=== PATIENT | female | born 1965 | race Hispanic/Latino ===

== ENCOUNTER 2022-04-30 13:18 | Inpatient (IN) | payer OTHER ==
[~2022-04-30] VITALS: Ht 147.3 cm; Wt 49.9 kg
[2022-04-30] MEDS ORDERED: HYDROCODONE/ACETAMINOPHEN 10/325 MG TAB PO ONE (14:00)
[2022-04-30] MEDS ORDERED: VANCOMYCIN 1G VIAL IVPB ONE (14:00)
[2022-04-30 14:04] LABS: BASOPHILS % (AUTO) 0.2 % (0.0-5.0); EOSINOPHILS % (AUTO) 0.5 % (0.0-8.0); HEMATOCRIT 28.4 % (36-48); LYMPHOCYTES % (AUTO) 11.2 % (21.0-51.0); MEAN CORPUSCULAR HEMOGLOBIN 28.6 pg (27.0-33.0); MEAN CORPUSCULAR HGB CONC 32.4 g/dL (32.0-36.0); MEAN CORPUSCULAR VOLUME 88.2 fL (79-99); MONOCYTES % (AUTO) 7.4 % (3.0-13.0); PLATELET COUNT (AUTO) 463 K/uL (130-400); RED BLOOD CELL COUNT(AUTO) 3.22 MIL/uL (4.00-5.50); RED CELL DISTRIBUTION WIDTH 12.9 % (11.0-15.5); WHITE BLOOD COUNT (AUTO) 17.6 K/uL (4.8-10.8)
[2022-04-30 14:12] LABS: CREATININE 2.5 mg/dL (0.5-1.5); POTASSIUM 4.2 mmol/L (3.5-5.1)
[2022-04-30] MEDS ORDERED: VANCOMYCIN 1G/250ML KIT 250 ML IV ONE (14:26)
[2022-04-30 14:27] LABS: ALBUMIN 2.9 g/dL (3.5-5.0); CRP QUANTITATIVE 160.8 mg/L (0.00-9.0); TOTAL PROTEIN, SERUM 8.6 g/dL (6.0-8.3)
[2022-04-30] MEDS: ZOSYN 3.375GM +NS 50ML IV SCH ×2 (14:38→20:42)
[2022-04-30] MEDS ORDERED: TETANUS/DIPHTHERIA TOXOID [ADULT] 0.5 ML VIAL IM ONE (15:00)
[2022-04-30] MEDS ORDERED: MORPHINE 4 MG SYG IV PRN (15:30)
[2022-04-30] MEDS ORDERED: CEFEPIME HCL 2 GM VIAL IVP SCH (15:30)
[2022-04-30] MEDS ORDERED: ACETAMINOPHEN 325 MG TAB PO PRN (15:30)
[2022-04-30] MEDS ORDERED: ACETAMINOPHEN WITH CODEINE 1 TAB TAB PO PRN ×2 (15:30)
[2022-04-30] MEDS ORDERED: VANCOMYCIN PROTOCOL PER PHARMACY IV PRN (15:30)
[2022-04-30] MEDS ORDERED: INSU100I3 SQ (15:46)
[2022-04-30] MEDS ORDERED: AMOX1TAB16 PO (15:46)
[2022-04-30] MEDS ORDERED: ATOR40TA69 PO (15:46)
[2022-04-30] MEDS ORDERED: LISI2.5T13 PO (15:46)
[2022-04-30] MEDS ORDERED: INSU100I21 SQ (15:46)
[2022-04-30] MEDS: 0.9% NACL 250ML 250 ML IV SCH (16:00)
[2022-04-30] MEDS: VANCOMYCIN 750MG VIAL IVPB SCH (16:00)
[2022-04-30] MEDS: 0.9%NACL 1000ML 1,000 ML IV SCH (16:15)
[2022-04-30] MEDS: CEFEPIME HCL 2 GM VIAL IVP SCH (20:42)
[2022-04-30 21:45] VITALS: BP 151/49
[2022-05-01] VITALS (17 sets, daily range): BP systolic 113–175; BP diastolic 61–86
[2022-05-01] MEDS ORDERED: BUPIVACAINE/PF 0.25% 50ML VIAL IJ ONE
[2022-05-01] MEDS ORDERED: LIDOCAINE HCL 1% 20 ML VIAL INJ ONE
[2022-05-01] MEDS: CEFEPIME HCL 2 GM VIAL IVP SCH ×3 (04:36→20:22)
[2022-05-01] MEDS: ZOSYN 3.375GM +NS 50ML IV SCH ×3 (06:13→22:00)
[2022-05-01] MEDS: ENOXAPARIN SODIUM 40 MG/0.4 ML SYRINGE SQ SCH (07:46)
[2022-05-01] MEDS: LISINOPRIL 2.5 MG TABLET PO SCH (08:13)
[2022-05-01 08:46] LABS: BASOPHILS % (AUTO) 0.4 % (0.0-5.0); EOSINOPHILS % (AUTO) 0.8 % (0.0-8.0); HEMATOCRIT 28.4 % (36-48); LYMPHOCYTES % (AUTO) 14.6 % (21.0-51.0); MEAN CORPUSCULAR HEMOGLOBIN 27.8 pg (27.0-33.0); MEAN CORPUSCULAR HGB CONC 31.7 g/dL (32.0-36.0); MEAN CORPUSCULAR VOLUME 87.7 fL (79-99); MONOCYTES % (AUTO) 7.3 % (3.0-13.0); NEUTROPHILS % (AUTO) 76.4 % (40.0-77.0); PLATELET COUNT (AUTO) 424 K/uL (130-400); RED BLOOD CELL COUNT(AUTO) 3.24 MIL/uL (4.00-5.50); RED CELL DISTRIBUTION WIDTH 12.9 % (11.0-15.5)
[2022-05-01 09:09] LABS: RETICULOCYTE % (AUTO) 0.91 % (0.42-2.23)
[2022-05-01 09:23] LABS: ALBUMIN 2.4 g/dL (3.5-5.0); CREATININE 2.1 mg/dL (0.5-1.5); CRP QUANTITATIVE 150.9 mg/L (0.00-9.0); POTASSIUM 4.7 mmol/L (3.5-5.1); TOTAL PROTEIN, SERUM 7.8 g/dL (6.0-8.3)
[2022-05-01 09:24] LABS: THYROID STIMULATING HORMONE 2.73 uIU/mL (0.36-3.74)
[2022-05-01 09:53] LABS: % IRON SATURATION 31.4 % (22-44)
[2022-05-01 10:02] LABS: ERYTHROCYTE SEDIMENTATION RATE 150 MM/HR (0-30)
[2022-05-01] MEDS: 0.9%NACL 1000ML 1,000 ML IV SCH ×3 (11:30→20:32)
[2022-05-01] MEDS: INSULIN HUMULIN R 100 UNIT/ML 3ML SQ SCH ×5 (13:04→20:12)
[2022-05-01] MEDS ORDERED: DEXTROSE 50%-WATER 50 ML DISP.SYRIN IV ONE ×2 (17:35→18:00)
[2022-05-01] MEDS: INSULIN GLARGINE 100 UNITS/ML 10 ML VIAL SQ SCH (20:12)
[2022-05-01] MEDS: ATORVASTATIN 40 MG TABLET PO SCH (20:22)
[2022-05-01] MEDS ORDERED: PROPOFOL 10 MG/ML 20ML VIAL IV ONE ×2 (20:58→21:41)
[2022-05-01] MEDS ORDERED: MIDAZOLAM HCL 1 MG/ML 2ML VIAL ONE (20:58)
[2022-05-01] MEDS ORDERED: FENTANYL CITRATE PF 50 MCG/1 ML 2ML VIAL ONE (20:59)
[2022-05-01] MEDS ORDERED: BUPIVACAINE/PF 0.25% 30ML VIAL IJ ONE (21:00)
[2022-05-01] MEDS ORDERED: LIDOCAINE HCL MPF 1% 5ML VIAL ONE (21:00)
[2022-05-02] VITALS (10 sets, daily range): BP systolic 104–174; BP diastolic 54–82
[2022-05-02] MEDS: 0.9%NACL 1000ML 1,000 ML IV SCH ×2 (05:04→17:41)
[2022-05-02] MEDS: CEFEPIME HCL 2 GM VIAL IVP SCH ×3 (05:04→21:54)
[2022-05-02] MEDS: ZOSYN 3.375GM +NS 50ML IV SCH ×3 (06:15→21:55)
[2022-05-02] MEDS: INSULIN HUMULIN R 100 UNIT/ML 3ML SQ SCH ×7 (06:16→21:56)
[2022-05-02] MEDS: ENOXAPARIN SODIUM 40 MG/0.4 ML SYRINGE SQ SCH (09:55)
[2022-05-02] MEDS: LISINOPRIL 2.5 MG TABLET PO SCH (09:55)
[2022-05-02] MEDS: ONDANSETRON 4MG INJ IV PRN ×2 (13:27→18:53)
[2022-05-02] MEDS: VANCOMYCIN 750MG VIAL IVPB SCH (17:45)
[2022-05-02] MEDS: 0.9% NACL 250ML 250 ML IV SCH (17:45)
[2022-05-02] MEDS ORDERED: CLONIDINE HCL 0.1 MG TABLET PO ONE (21:30)
[2022-05-02] MEDS: ATORVASTATIN 40 MG TABLET PO SCH (21:54)
[2022-05-02] MEDS: INSULIN GLARGINE 100 UNITS/ML 10 ML VIAL SQ SCH (21:57)
[2022-05-03 00:23] VITALS: BP 111/80
[2022-05-03] MEDS: CEFEPIME HCL 2 GM VIAL IVP SCH ×3 (05:05→21:26)
[2022-05-03] MEDS: ZOSYN 3.375GM +NS 50ML IV SCH ×3 (05:05→21:35)
[2022-05-03 05:18] LABS: BASOPHILS % (AUTO) 0.3 % (0.0-5.0); EOSINOPHILS % (AUTO) 0.2 % (0.0-8.0); HEMATOCRIT 24.1 % (36-48); LYMPHOCYTES % (AUTO) 12.3 % (21.0-51.0); MEAN CORPUSCULAR HEMOGLOBIN 28.4 pg (27.0-33.0); MEAN CORPUSCULAR HGB CONC 31.5 g/dL (32.0-36.0); MEAN CORPUSCULAR VOLUME 89.9 fL (79-99); MONOCYTES % (AUTO) 7.2 % (3.0-13.0); NEUTROPHILS % (AUTO) 79.3 % (40.0-77.0); PLATELET COUNT (AUTO) 363 K/uL (130-400); RED BLOOD CELL COUNT(AUTO) 2.68 MIL/uL (4.00-5.50); RED CELL DISTRIBUTION WIDTH 13.2 % (11.0-15.5); WHITE BLOOD COUNT (AUTO) 13.4 K/uL (4.8-10.8)
[2022-05-03 05:33] LABS: ALBUMIN 1.9 g/dL (3.5-5.0); CRP QUANTITATIVE 126.9 mg/L (0.00-9.0); POTASSIUM 4.8 mmol/L (3.5-5.1); TOTAL PROTEIN, SERUM 6.8 g/dL (6.0-8.3)
[2022-05-03] MEDS: INSULIN HUMULIN R 100 UNIT/ML 3ML SQ SCH ×7 (06:40→21:31)
[2022-05-03 08:00] VITALS: BP 120/61
[2022-05-03] MEDS: LISINOPRIL 2.5 MG TABLET PO SCH (08:05)
[2022-05-03] MEDS: ENOXAPARIN SODIUM 40 MG/0.4 ML SYRINGE SQ SCH (08:06)
[2022-05-03] MEDS ORDERED: 0.9% NACL 500ML IV.SOLN 500 ML IV SCH (08:30)
[2022-05-03 12:00] VITALS: BP 117/56
[2022-05-03] MEDS: ACETAMINOPHEN 325 MG TAB PO PRN ×2 (13:05→21:38)
[2022-05-03 16:00] VITALS: BP 145/61
[2022-05-03 19:58] VITALS: BP 130/65
[2022-05-03] MEDS: ATORVASTATIN 40 MG TABLET PO SCH (21:26)
[2022-05-03] MEDS: INSULIN GLARGINE 100 UNITS/ML 10 ML VIAL SQ SCH (21:32)
[2022-05-04 00:08] VITALS: BP 158/80
[2022-05-04 04:33] VITALS: BP 137/74
[2022-05-04] MEDS: CEFEPIME HCL 2 GM VIAL IVP SCH (05:27)
[2022-05-04] MEDS: ZOSYN 3.375GM +NS 50ML IV SCH (05:54)
[2022-05-04 06:01] LABS: BASOPHILS % (AUTO) 0.3 % (0.0-5.0); EOSINOPHILS % (AUTO) 1.2 % (0.0-8.0); HEMATOCRIT 23.9 % (36-48); LYMPHOCYTES % (AUTO) 20.5 % (21.0-51.0); MEAN CORPUSCULAR HEMOGLOBIN 28.4 pg (27.0-33.0); MEAN CORPUSCULAR HGB CONC 32.2 g/dL (32.0-36.0); MEAN CORPUSCULAR VOLUME 88.2 fL (79-99); MONOCYTES % (AUTO) 8.8 % (3.0-13.0); NEUTROPHILS % (AUTO) 68.5 % (40.0-77.0); PLATELET COUNT (AUTO) 357 K/uL (130-400); RED BLOOD CELL COUNT(AUTO) 2.71 MIL/uL (4.00-5.50); RED CELL DISTRIBUTION WIDTH 13.1 % (11.0-15.5); WHITE BLOOD COUNT (AUTO) 12.1 K/uL (4.8-10.8)
[2022-05-04 06:20] LABS: ALBUMIN 1.8 g/dL (3.5-5.0); CREATININE 2.1 mg/dL (0.5-1.5); CRP QUANTITATIVE 102.7 mg/L (0.00-9.0); MAGNESIUM 1.8 mg/dL (1.80-2.40); POTASSIUM 4.3 mmol/L (3.5-5.1); TOTAL PROTEIN, SERUM 6.7 g/dL (6.0-8.3)
[2022-05-04] MEDS: INSULIN HUMULIN R 100 UNIT/ML 3ML SQ SCH ×2 (06:39→06:48)
[2022-05-04] MEDS ORDERED: GLIM4TAB36 PO (08:19)
[2022-05-04] MEDS ORDERED: LEVO250T43 PO (08:19)
[2022-05-04] MEDS ORDERED: FOLI0.4T6 PO (08:37)
[2022-05-04] MEDS: ENOXAPARIN SODIUM 40 MG/0.4 ML SYRINGE SQ SCH (09:10)
[2022-05-04] MEDS: LISINOPRIL 2.5 MG TABLET PO SCH (09:10)
[2022-05-04 09:17] VITALS: BP 164/65
== END 2022-05-04 11:30 | disposition home or self-care (01) | DRG 616 ==
LOC: EDH 13:18 → EDHIP 13:19 → 3CH 21:33
PROVIDERS: ADMIT Hospitalist; ATTEND Hospitalist
PROC: 0Y6X0Z0 Detachment at Right 5th Toe, Complete, Open Approach (ICD-10-PCS; 2022-05-01)
PROC: 0Y6V0Z0 Detachment at Right 4th Toe, Complete, Open Approach (ICD-10-PCS; principal; 2022-05-01 21:21)
DX: E11.69 Type 2 diabetes mellitus with other specified complication (principal); E43 Unspecified severe protein-calorie malnutrition; U07.1 COVID-19; M72.6 Necrotizing fasciitis; M86.8X7 Other osteomyelitis, ankle and foot; L03.115 Cellulitis of right lower limb; E87.1 Hypo-osmolality and hyponatremia; L02.611 Cutaneous abscess of right foot; N17.9 Acute kidney failure, unspecified; E11.65 Type 2 diabetes mellitus with hyperglycemia; D64.9 Anemia, unspecified; Z68.23 Body mass index [BMI] 23.0-23.9, adult; D75.838 Other thrombocytosis; E11.621 Type 2 diabetes mellitus with foot ulcer; L97.519 Non-pressure chronic ulcer of other part of right foot with unspecified severity; X58.XXXA Exposure to other specified factors, initial encounter; Y93.89 Activity, other specified; Y92.89 Other specified places as the place of occurrence of the external cause; Y99.8 Other external cause status; S92.511A Displaced fracture of proximal phalanx of right lesser toe(s), initial encounter for closed fracture
CPT/HCPCS: 36415; 73630; 73718; 76770; 80053; 82728; 82746; 82948; 83036; 83540; 83550; 83605; 83735; 84145; 84443; 84484; 85025; 85045; 85651; 86140; 87040; 87070; 87076; 87077; 87186; 87205; 87635; 90714; G0378; J0692; J1650; J1815; J2250; J2270; J2405; J2543; J2704; J3010; J3370; J3490; J7040; J7070